=== PATIENT | male | born 1970 | race Two or more races ===

== ENCOUNTER 2018-02-09 08:58 | Outpatient (CLI) | payer OTHER | END 2018-02-09 09:09 | disposition home or self-care (01) | LOC: NUCLEAR 08:58 | DX: R50.9 Fever, unspecified (principal) | CPT/HCPCS: 78802; A9556 ==

== ENCOUNTER 2018-06-25 05:35 | Emergency (ER) | payer OTHER ==
[~2018-06-25] VITALS: Ht 182.9 cm; Wt 97.5 kg
[2018-06-25] MEDS ORDERED: LOSARTAN POTASS25 MG (05:46)
[2018-06-25] MEDS ORDERED: COUMADIN1 MG (05:46)
== END 2018-06-25 22:07 | disposition home or self-care (01) ==
LOC: ER 05:35
DX: K61.0 Anal abscess (principal)

== ENCOUNTER 2018-06-27 09:07 | Inpatient (IN) | payer OTHER ==
[~2018-06-27] VITALS: Ht 185.4 cm; Wt 113.4 kg
[~2018-06-27 09:07] MED LIST: COUMADIN1 MG; LOSARTAN POTASS25 MG
== END 2018-06-30 07:15 | disposition home or self-care (01) | DRG 345 ==
LOC: SEC-K 09:07 → MEDJ 09:07
PROVIDERS: Surgery; ADMIT Internal Medicine Cardiovascular Disease
PROC: 0D9Q7ZZ Drainage of Anus, Via Natural or Artificial Opening (ICD-10-PCS; 2018-06-27)
PROC: 0D9P7ZZ Drainage of Rectum, Via Natural or Artificial Opening (ICD-10-PCS; principal; 2018-06-27 12:30)
PROC: BW24Y0Z Computerized Tomography (CT Scan) of Chest and Abdomen using Other Contrast, Unenhanced and Enhanced (ICD-10-PCS; 2018-06-29)
DX: K61.2 Anorectal abscess (principal); D68.51 Activated protein C resistance; D68.318 Other hemorrhagic disorder due to intrinsic circulating anticoagulants, antibodies, or inhibitors; I10 Essential (primary) hypertension; B96.29 Other Escherichia coli [E. coli] as the cause of diseases classified elsewhere; B95.2 Enterococcus as the cause of diseases classified elsewhere